=== PATIENT | female | born 1960 | race African-American/Black ===

== ENCOUNTER → 2025-02-18 | Outpatient (CLI) | payer MEDICARE, MEDICAID ==
[~2025-02-18] MED LIST: CEL200 PO; FLUT9.9S16 BOTHNSTRLS; GABA100C PO; MONT-46 PO; MULT-1116 PO; OMEP20CA14 PO; UPAD15TA
== END | disposition home or self-care (01) ==
LOC: CARD 02-17 07:41
PROVIDERS: ATTEND Internal Medicine
DX: Z01.810 Encounter for preprocedural cardiovascular examination (principal); I25.9 Chronic ischemic heart disease, unspecified; R00.0 Tachycardia, unspecified; I10 Essential (primary) hypertension
CPT/HCPCS: 93350